=== PATIENT | male | born 2005 | race Two or more races ===

== ENCOUNTER 2024-03-02 17:30 | Emergency (ER) | payer SELFPAY ==
[2024-03-02 18:00] VITALS: BP 143/90; PULSE 112; RESP 19; TEMP 36.9; O2SAT 98; BMI 24.1
--- NOTE | 2024-03-02 18:12 | XR_ITS ---
Examination: PA lateral chest 2 views Technique: Upright PA lateral chest 2 views Exam date and time: March 02, 2024 at 1854 hrs. Indications: Onset left-sided chest pain today Findings: Tiny probable granulomas in both lungs Normal heart size No pneumothorax No pneumonia or pulmonary edema The osseous structures are intact Impression: No active disease
--- NOTE | 2024-03-02 18:12 | EKG_ITS ---
[facility] Test Date: 2024-03-02 Pat Name: CAMILLA DENNY Department: Room: - Gender: Male Supervisor Order Takers: : 2005 Requested By: Juaquin Bird ([facility]) Order Number: [id number] Reading MD: Juaquin Bird ([facility]) Measurements Intervals [place] Rate: 109 P: 38 [place]: 96 QRS: 93 QRSD: 145 T: 25 QT: 355 QTc: 479 Interpretive Statements SINUS TACHYCARDIA WITH SHORT [place] INTERVAL VENTRICULAR PREEXCITATION/WPW No previous ECG available for comparison /store/S0/[id number]/ecg/[id number].pdf
--- NOTE | 2024-03-02 18:12 | PD.EDARRY ---
ED Arrhythmia Palp. RME/HPI General Chief Complaint: Arrhythmia/Palpitations Stated Complaint: rapid heart rate at work Time Seen by Provider: 03/02/24 18:03 Arrival date/time: 03/02/24 17:30 18-year-old male with no significant past medical history presents emergency department complaining of intermittent palpitations that have been ongoing for 5 years. Related Data Home Medications ?Medication ?Instructions ?Recorded ?Confirmed No Known Home Medications 08/11/21 08/11/21 Allergies Allergy/AdvReac Type Severity Reaction Status Date / Time No Known Allergies Allergy Verified 03/02/24 17:31 Course Orders Category Date Time Status EKG (ED ONLY) *Do not use* NOW Care 03/02/24 18:12 Active EKG (ED Only) Stat Exams 03/02/24 18:12 Ordered XR chest 2V Stat Exams 03/02/24 18:12 Ordered CBC Stat Lab 03/02/24 18:12 Ordered Comprehensive Metabolic Panel Stat Lab 03/02/24 18:12 Ordered Drug Screen,Urine Stat Lab 03/02/24 18:12 Ordered Troponin I Stat Lab 03/02/24 18:12 Ordered Vital Signs Vital signs: Vital Signs Temperature 98.5 F 03/02/24 18:00 Pulse Rate 112 H 03/02/24 18:00 Respiratory Rate 19 03/02/24 18:00 Blood Pressure 143/90 H 03/02/24 18:00 Pulse Oximetry (%) 98 03/02/24 18:00 Oxygen Delivery Method Room Air 03/02/24 18:00 Discharge Plan Prescriptions/Referrals Prescriptions/Med Rec: No Action No Known Home Medications Referrals: No Primary/Family,Physician [Primary Care Provider] - In 1 week Patient/Caregiver Discharge Instructions Print Language: Zimbabwean
[2024-03-02 19:05] LABS: Basophils % (Auto) 0 % (0-2.5); Eosinophils % (Auto) 0 % (0-10); Hematocrit 46.9 % (41.0-53.0); Hemoglobin 16.6 g/dL (13.5-16.0); Immature Granulocytes % (Auto) 0 % (0-0); Immature Granulocytes Auto 0.06 Thou/mm3 (0.00-0.00); Lymphocytes # (Auto) 1.4 Thou/mm3 (1.0-5.0); Lymphocytes % (Auto) 8 % (10-50); Mean Corpuscular HGB Conc 35.4 g/dl (31.0-37.0); Mean Corpuscular Hemoglobin 29.4 pg (25.0-35.0); Mean Corpuscular Volume 83 fL (80-100); Monocytes # (Auto) 0.8 Thou/mm3 (0.0-0.8); Monocytes % (Auto) 5 % (0-12); Neutrophils # (Auto) 15.3 Thou/mm3 (1.8-7.7); Neutrophils % (Auto) 87 % (37-80); Nucleated Red Blood Cell % 0 /100 WBC (0); Platelet Count 263 Thou/mm3 (140-440); RDW Standard Deviation 39.7 fL (35.1-43.9); Red Blood Count 5.65 Miln/mm3 (4.50-5.90); White Blood Count 17.6 Thou/mm3 (4.5-11.0)
[2024-03-02 19:24] LABS: Alanine Aminotransferase 48 U/L (10-49); Albumin, Serum 4.9 gm/dL (3.5-5.0); Alkaline Phosphatase 94 U/L (46-116); Anion Gap 6 (7-16); Aspartate Amino Transferase 23 U/L (0-34); BUN/Creatinine Ratio 14 Ratio (12-20); Bilirubin,Total 0.5 mg/dL (0.3-1.2); Blood Urea Nitrogen 15 mg/dL (9-23); Carbon Dioxide 28.7 mMol/L (20.0-31.0); Chloride 104 mMol/L (98-107); Creatinine (Component) 1.1 mg/dL (0.6-1.3); Globulin 2.4 gm/dL (2.3-3.5); Glucose 97 mg/dL (74-106); Magnesium 2.1 mg/dL (1.6-2.6); Osmolality,Calculated 278 (275-295); Potassium 3.5 mMol/L (3.4-5.1); Sodium 139 mMol/L (136-145); Total Protein 7.3 gm/dL (5.7-8.2); eGFR > 60 See Note
[2024-03-02 19:25] LABS: Troponin I 0.053 ng/mL (0.0-0.045)
[2024-03-02 19:28] LABS: Amphetamine/Methamp Scrn,U Negative (Negative); Barbiturate Screen,Urine Negative (Negative); Benzodiazepines Screen,Urine Negative (Negative); Benzoylecgonine Screen, Ur Negative (Negative); Fentanyl Screen,Urine Negative (Negative); Opiate Screen,Urine Negative (Negative); THC Screen,Urine Negative (Negative)
[2024-03-02 19:30] LABS: Partial Thromboplastin Time 28.2 Seconds (22.0-36.0); Prothrombin Time 11.2 Seconds (9.0-12.2)
--- NOTE | 2024-03-02 19:46 | PD.EDRME ---
Rapid Medical Screening Exam RME Arrival date/time: 03/02/24 17:30 18-year-old male with no significant past medical history presents emergency department complaining of intermittent palpitations that have been ongoing for 5 years. Chief Complaint: Arrhythmia/Palpitations Time Seen by Provider: 03/02/24 18:03 Vital signs: Vital Signs Temperature 98.5 F 03/02/24 18:00 Pulse Rate 112 H 03/02/24 18:00 Respiratory Rate 19 03/02/24 18:00 Blood Pressure 143/90 H 03/02/24 18:00 Pulse Oximetry (%) 98 03/02/24 18:00 Oxygen Delivery Method Room Air 03/02/24 18:00 Vital signs reviewed by provider: Yes
--- NOTE | 2024-03-02 20:16 | PD.EDARRY ---
ED Arrhythmia Palp. RME/HPI General Chief Complaint: Arrhythmia/Palpitations Stated Complaint: rapid heart rate at work Time Seen by Provider: 03/02/24 18:03 Source: patient Arrival date/time: 03/02/24 17:30 Mode of arrival: ambulatory Limitations: no limitations RME / HPI RME / HPI narrative: 03/02/24 17:30 18-year-old male with no significant past medical history presents emergency department complaining of intermittent palpitations that have been ongoing for [address] Sharp's Main ED Evaluation: 18-year-old male who presents to the emergency department via private auto for complaints of chest tightness and palpitations since 330PM while working in the [employer] today. He denies the following: falls, injuries, loss of consciousness, sweating, nausea, vomiting, diarrhea, dizziness, headache, abdoinal pain, UTI symptoms, fever, chills, or any other medical complaints. He notes history of similar symptoms about 4 years ago in [place] and again 2 years ago. No tobacco, alcohol or substance use. He denies any regular doctor or clinic. Related Data Home Medications ?Medication ?Instructions ?Recorded ?Confirmed No Known Home Medications 08/11/21 03/03/24 Allergies Allergy/AdvReac Type Severity Reaction Status Date / Time No Known Allergies Allergy Verified 03/03/24 00:57 Review of Systems Review of Systems Systems Reviewed: All systems reviewed, normal except as documented Past Medical History Social History SMOKING STATUS: Never smoker ED Exam Narrative Physical exam: GENERAL: Patient is alert awake oriented x3 under no distress, laying down comfortably at 30-45?; does not look ill/ toxic. Patient has good eye contact. Patient is cooperative. VITALS: All vitals were reviewed and the pulse ox is 98% on room air, which is normal according to my interpretation. HEENT: Normocephalic, atraumatic and nontender. Pupils are equal and reactive to light and accommodation. Oral mucosa are moist. NECK: Supple, nontender, no meningismus, no JVD. CHEST: Nontender on palpation, no deformity and no crepitus. CARDIOVASCULAR: Heart regular rhythm no murmur or gallop rub or extra beats; not tachycardic. LUNGS: Clear to auscultation bilaterally with symmetrical chest rise. No laboring tachypnea or wheezing. No intercostal subcostal retraction. No rales and no rhonchi. ABDOMEN: Soft, flat, nontender at all, no guarding or rebound tenderness. There are no abnormal masses palpated. No pulsatile masses or bruits. Active and normal bowel sounds. GENITALIA: Not examined. RECTAL EXAM: Not done. EXTREMITIES: Nontender. No edema. No cyanosis. Patient is able to move all 4 extremities well. SKIN: Warm and dry, no rashes noted. MUSCULOSKELETAL: No lumbar or midline bony tenderness. There is no CVA tenderness. No paraspinal muscle spasm or tenderness. NEURO: Cranial nerves II through XII grossly intact. There is no focalization. GCS is 15. PSYCHIATRIC: Patient is in normal mood and affect, cooperative. General Limitations: Present no limitations Course Course Course Narrative: CXR is ordered for determining etiology of chest pain. Quality Measures none Orders Category Date Time Status EKG (ED ONLY) *Do not use* NOW Care 03/02/24 18:12 Completed EKG (ED Only) Stat Exams 03/02/24 18:12 Draft XR chest 2V Stat Exams 03/02/24 18:12 Completed CBC Stat Lab 03/02/24 18:43 Completed Comprehensive Metabolic Panel Stat Lab 03/02/24 18:43 Completed Drug Screen,Urine Stat Lab 03/02/24 18:43 Completed Magnesium Stat Lab 03/02/24 18:43 Completed PT [Prothrombin Time with INR] Stat Lab 03/02/24 18:43 Completed PTT [Partial Thromboplastin Time] Stat Lab 03/02/24 18:43 Completed Troponin I Stat Lab 03/02/24 18:43 Completed Vital Signs Vital signs: Vital Signs Temperature 98.5 F 03/02/24 18:00 Pulse Rate 112 H 03/02/24 18:00 Respiratory Rate 19 03/02/24 18:00 Blood Pressure 143/90 H 03/02/24 18:00 Pulse Oximetry (%) 98 03/02/24 18:00 Oxygen Delivery Method Room Air 03/02/24 18:00 Procedures -ED EKG Interpretation #1: Date of EK03/02/24 Rate: 109 Interpretation: Interpreted by me EKG Impression: Normal sinus rhythm, No ectopy, Sinus tachycardia, Normal intervals and Normal axis Additional EKG comment: Very short WI antibiotics and also 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 Very large R waves in V1 V2 V3 are observed which could indicate hypertrophic cardiomyopathy. Arrhythmia/Palpitations MDM Narrative MDM Narrative:: Scribe Attestation: I, Deuce Reddy, am scribing for and in the presence of Dr. Sharp. Patient comes in due to heart palpitations and the heart beating fast which happened while he was working at the [employer] at around 3:30 PM. Patient states that he was working like his usual work when all of a sudden his chest started feeling tight and he started feeling palpitations and his heart and beating fast. This lasted about 30 minutes and then it quit on its own. At that time he had more tightness than real pain but he says that his cramping was quite severe mainly in his left pectoralis muscles. He close the pain at 5 on a scale 0-10 and right now he has very slight pain at 2 on a scale 0-10. Patient denies any fall or injuries or loss of consciousness. He denies any sweating, nausea vomiting or dizziness or headache. He denies any abdominal pain. He denies any shortness of breath and no coughing. She denies any abdominal pain or UTI symptoms. He denies fever chills. Patient states that he had the first episode similar to this 40 years ago when he was in [place], when he was admitted to the hospital and the gummed tape press operator gave him a prescription for some kind of a medication and he said that he got better but he has not been taking that medication and he does not know the name. He also had 1 more similar episode 2 years ago when he was here and he came to this emergency room complaining of this chest palpitations but mainly had headaches and cramping in his scalp. He says that he was evaluated and discharged home but he never followed up with any doctor at the clinic afterwards. He has no past medical history of hypertension or diabetes or any other problems. He does not take any medications and he does not go to any doctor. He absolutely denies any smoking, alcohol or any drugs. His physical exam is normal and his CBC and chemistries are all unremarkable except for elevated white count of 17.6 and a left shift of 87 segs 0 bands and 8 lymphs. His BUN and creatinine are normal and his troponin is borderline at 0.053. His drug screen is negative. His chest x-ray is negative for cardiomegaly, perihilar congestion, pleural effusion, free air underneath the diaphragm, or any infiltrates according to my interpretation. His EKG shows typical WPW with a very short WI intervals and also preexcitation of the R waves. Patient will be admitted to the hospital for further evaluation by the gummed tape press operator tomorrow morning. At 8:45 PM, I discussed this case with Dr. Springer, PGY2, and she wants to consult with the gummed tape press operator, Dr. Bill Thomas. Then I talked to Dr. Bill Thomas myself and he recommends that the patient be followed up as an outpatient and he says that the patient does not need to be admitted to the hospital, because he is not in atrial fibrillation and not tachycardic. I will keep the patient here in the emergency room for the night and repeat his troponin. He will be in observation status. At 1041 p.m., patient's repeat troponin came back higher at 0.086. Therefore I called Dr. Bill Thomas again and he told me not to repeat the troponin anymore. We will continue observing him here in the emergency room just in case that he has a cardiac arrhythmia. Dr. Bill Thomas told me that if he does not have any arrhythmia, the chances of him having a coronary artery disease are slim to none. Patient continues totally asymptomatic and he is group home sleep right now. Differential diagnoses: WPW, cardiac arrhythmia, SVT, coronary artery syndrome, hypertrophic cardiomyopathy. Provider Notation: Although this document has been carefully reviewed, there may still be some phonetic and other typographical errors. These errors are purely grammatical due to imperfections in the software program and should not be construed in any way to compromise the substance of the patient's medical care during this visit. Patient data External records reviewed:: [facility] previous records Clinical information provided by:: patient Social determinants that could affect healthcare access:: none Patient has the following chronic illnesses:: None How is presenting disease/condition affected by chronic disease/condition?: no chronic disease Evaluation data The following diagnostics were reviewed and interpreted by me:: lab results, radiology exam(s) and EKG tracing(s) Lab and/or radiology exams considered but not ordered:: None Interpretation Summary: Examination: PA lateral chest 2 views Technique: Upright PA lateral chest 2 views Exam date and time: March 02, 2024 at 1854 hrs. Indications: Onset left-sided chest pain today Findings: Tiny probable granulomas in both lungs Normal heart size No pneumothorax No pneumonia or pulmonary edema The osseous structures are intact Impression: No active disease Dictated By: Dru Lopez MD Medications / Prescriptions Medications or Prescriptions considered but not ordered:: None Medication administrations:: As above, if any Consultations Consultation(s) initiated? (list below): Yes Consultation #1 (Physician, Specialty, Details): See narrative Diagnosis Differential diagnosis arrhythmia/palpitations: other (WPW, cardiac arrhythmia, SVT, coronary artery syndrome, hypertrophic cardiomyopathy) Most likely diagnosis given after review of the tests above:: Palpitations, Concealed WPW (Kypsu-Dxvqobfjv-Acaav) syndrome, Elevated troponin Admission Indicated Admission indicated?: not indicated Admission Request Was there a request for admission?: No Disposition Plan Disposition Plan: Discharge Discharge Attestation Discharge Attestation: The patient and all family members were given an opportunity to ask questions and understood the discharge instructions. Discharge instructions specifically effects, indications for sooner follow up or return to the emergency department, and the expected course of current diagnosis. 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 Be sure to follow-up with the [facility] today so they can refer you to a gummed tape press operator for further evaluation and treatment. Return here if worse. Print Language: Welsh Stand Alone Forms: Lilian Award Info., Patient Portal Info Letter
[2024-03-02 20:59] VITALS: BP 143/85; PULSE 100; RESP 24; TEMP 36.4; O2SAT 100
[2024-03-02 22:27] VITALS: BP 125/77; PULSE 127; RESP 14; O2SAT 97
[2024-03-02 22:40] LABS: Troponin I 0.084 ng/mL (0.0-0.045)
[2024-03-02 23:10] VITALS: BP 129/71; PULSE 99; RESP 15; TEMP 37.3; O2SAT 99
[2024-03-03 00:59] VITALS: BP 119/58; PULSE 60; RESP 18; O2SAT 98
[2024-03-03 03:14] VITALS: BP 109/78; PULSE 88; RESP 19; O2SAT 97
[2024-03-03 03:16] VITALS: BP 109/78; PULSE 76; RESP 18; TEMP 36.9; O2SAT 99
[2024-03-03 05:51] VITALS: BP 128/92; PULSE 75; RESP 18; O2SAT 99
[2024-03-03 06:32] VITALS: BP 126/84; PULSE 80; RESP 16; TEMP 36.6; O2SAT 100
== END 2024-03-03 06:31 | disposition home or self-care (01) ==
PROVIDERS: Emergency Provider Emergency Medicine
DX: R00.0 Tachycardia, unspecified (principal); I45.6 Pre-excitation syndrome; R00.2 Palpitations; R79.89 Other specified abnormal findings of blood chemistry; R07.89 Other chest pain; D72.829 Elevated white blood cell count, unspecified
CPT/HCPCS: 36415; 71046; 80053; 80307; 83735; 84484; 85025; 85610; 85730; 93005; 99283